=== PATIENT | female | born 1935 | race Caucasian/White ===

== ENCOUNTER 2017-02-06 03:54 | Inpatient (IN) ==
[2017-02-06 04:12] LABS: MANUAL DIFF NEEDED? NO
[2017-02-06 04:25] LABS: INR 1.09; PROTIME 11.5 Seconds (9.2-11.7); PTT 29.8 Seconds (22.0-36.0)
[2017-02-06 04:33] LABS: BASO% 0.5 % (0.0-0.8); EOS# 0.26 X1000 (0.0-0.7); EOS% 2.2 % (0.0-10.0); HEMATOCRIT 41.2 % (37.0-47.0); HEMOGLOBIN 12.6 g/dL (12.0-16.0); IMM GRAN# 0.03 X1000 (0.0-0.04); IMM GRAN% 0.3 % (0.0-0.5); LYMPH# 1.65 X1000 (1.2-3.4); LYMPH% 14.1 % (20.5-51.1); MCH 29.6 PG (27-31); MCHC 30.6 g/dL (33-37); MCV 96.9 FL (81-99); MONO# 1.11 X1000 (0.11-0.59); MONO% 9.5 % (1.7-9.3); MPV 10.9 FL (7.4-10.4); NEUT% 73.4 % (42.2-75.2); PLT 288 X1000 (130-400); RBC 4.25 XMIL (4.2-5.4)
[2017-02-06 04:38] LABS: ALBUMIN 3.9 g/dL (3.5-5.0); CALCIUM 9.5 mg/dL (8.8-10.2); MAGNESIUM 2.2 mg/dL (1.5-2.7); POTASSIUM 3.7 mmol/L (3.5-5.1); TOTAL BILIRUBIN 0.39 mg/dL (0.20-1.00); TOTAL PROTEIN 8.7 g/dL (6.3-8.3)
--- NOTE | 2017-02-06 06:15 | Diag Imaging Result Doc PS360 ---
EXAM: CHEST-PORTABLE HISTORY: SOB TECHNIQUE: Portable COMPARISON: 08/23/2015 FINDINGS: The lungs are well expanded. The heart is enlarged. There is vascular distention. No pleural effusions identified. No consolidation. IMPRESSION: Cardiomegaly with pulmonary edema. Follow-up PA and lateral recommended. Electronically signed by Hayder Jones 02/06/2017 6:12 AM
[2017-02-06 06:49] LABS: ALLEN TEST YES; BE 11.6 mmoll (-3.0-3.0); BLOOD TYPE ARTERIAL; DRAW SITE R RADIAL; METHB 0.9 % (0.0-1.5); O2(CT) 18.3 mL/dL (15.0-23.0); PO2(98.6) 281 mmHg (60-100); SAMPLE BLOOD; SAO2 99.7 % (95.0-100.0); THB 12.9 g/dL (11.5-17.4); pH(98.6) 7.35 (7.35-7.45)
[2017-02-06 06:51] LABS: MODALITY NRB; PCO2(98.6) 73 mmHg (35-45)
--- NOTE | 2017-02-06 06:52 | PROVIDER DOCUMENTATION ---
HPI-Chest Pain - General Chief Complaint: Chest Pain Stated Complaint: cp Time Seen by Provider: 02/06/17 04:20 Source: patient Allergies/Adverse Reactions: Patient Allergies Allergy/AdvReac Type Severity Reaction Status Date / Time cephalexin [From Keflex] Allergy Mild Unknown Verified 02/06/17 04:24 Home Medications: Home Medication List Medication Instructions Recorded Confirmed Last Taken Type Acetaminophen [Tylenol] 1 each PO TID PRN 02/06/17 02/06/17 Unknown History Alprazolam [Xanax] 0.25 mg PO TID 02/06/17 02/06/17 Unknown History Atorvastatin Calcium [Lipitor] 10 mg PO QHS 02/06/17 02/06/17 Unknown History Carvedilol [Coreg] 25 mg PO DAILY 02/06/17 02/06/17 Unknown History Cilostazol [Pletal] 50 mg PO BID 02/06/17 02/06/17 Unknown History Dapagliflozin Propanediol [Farxiga] 10 mg PO DAILY 02/06/17 02/06/17 Unknown History Desvenlafaxine Succinate [Pristiq 100 mg PO DAILY 02/06/17 02/06/17 Unknown History ER] Digoxin [Lanoxin] 1 each PO DAILY 02/06/17 02/06/17 Unknown History Diltiazem HCl [Diltiazem ER] 1 each PO DAILY 02/06/17 02/06/17 Unknown History Docusate Sodium [Colace] 200 mg PO QHS 02/06/17 02/06/17 Unknown History Furosemide [Lasix] 40 mg PO BID 02/06/17 02/06/17 Unknown History Gabapentin 300 mg PO TID 02/06/17 02/06/17 Unknown History Hydrocodone/APAP 5 mg/325 mg 1 each PO TID PRN 02/06/17 02/06/17 Unknown History [[place]anton-5] Insulin Glargine [Lantus] 60 units SUBQ BID 02/06/17 02/06/17 Unknown History Insulin Lispro [Humalog] 1 each PO DIRECTED 02/06/17 02/06/17 Unknown History Levothyroxine Sodium [Synthroid] 25 mcg PO QAM 02/06/17 02/06/17 Unknown History Losartan Potassium [Cozaar] 100 mg PO DAILY 02/06/17 02/06/17 Unknown History Melatonin 3 mg PO QHS 02/06/17 02/06/17 Unknown History Metformin HCl [Metformin HCl ER] 1 each PO QHS 02/06/17 02/06/17 Unknown History Olanzapine 10 mg PO QHS 02/06/17 02/06/17 Unknown History Polyethylene Glycol 3350 [Miralax] 1 each PO DAILY 02/06/17 02/06/17 Unknown History Potassium Chloride E.r. [Klor-Con] 20 meq PO DAILY 02/06/17 02/06/17 Unknown History Vit/Fe Fumarate/FA 1 each PO DAILY 02/06/17 02/06/17 Unknown History [ 1-1 Tablet] Rivaroxaban [Xarelto] 20 mg PO DAILY 02/06/17 02/06/17 Unknown History - History of Present Illness-CP Nature of Presenting Problem: senior living transferred pt to ER because of SOB and pale-colored. Pt uses home O2 for 3L NC. Pt is A&O X 3 and she pointed to her L chest and LUQ area when asked for the location of the pain. Pt and her family stating that she is DNR. 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 Location: reports: other (See above) Review of Systems - Adult - REVIEW OF SYSTEMS - ADULT Constitutional: reports: no symptoms reported Eyes: reports: no symptoms reported Ears, Nose, Mouth & Throat: reports: no symptoms reported Cardiovascular: reports: see HPI, chest pain. denies: heart murmur, irregular heart rate, palpitations Respiratory: reports: see HPI, cough, shortness of breath Gastrointestinal: reports: no symptoms reported, abdominal pain, other ( Diffused LUQ area tenderness, no guarding and no rebound.). denies: rectal bleeding, vomiting Genitourinary: reports: no symptoms reported Musculoskeletal: reports: no symptoms reported Integumentary: reports: no symptoms reported Neurological: reports: no symptoms reported Psychiatric: reports: no symptoms reported Endocrine: reports: no symptoms reported Hematologic/Lymphatic: reports: no symptoms reported Allergic/Immunologic: reports: no symptoms reported All Other Systems: Reviewed and Negative Past History - Adult - PAST MEDICAL HISTORY-ADULT Review of Records: reports: Old Records Reviewed, Nursing Assessment Review, Medications Reviewed, Social history reviewed & non-contributory. Major Childhood Illnesses: reports: denies history Cardiovascular: reports: A-Fib, CHF, HTN, hyperlipidemia Respiratory: reports: denies history Gastrointestinal: reports: denies history Obstetrical/Gynecological: reports: denies history Genitourinary: reports: denies history Musculoskeletal: reports: denies history Neurological: reports: dementia Psychiatric: reports: denies history Endocrine/Immune: reports: Diabetes Other Conditions: reports: blindness - PRIOR SURGERIES/PROCEDURES Surgical/Procedure History: reports: cholecystectomy, hysterectomy, joint replacement (right knee) - PRIOR HOSPITALIZATIONS Prior Hospitalizations: reports: for similar symptoms - IMMUNIZATION STATUS Childhood Immunizations: See Nurse Assessment Flu Vaccine: See Nurse Assessment - FAMILY HISTORY Family History: CAD over 55 yo Physical Exam-General - PHYSICAL EXAM-ADULT Initial Vital Signs Reviewed: Yes - CONSTITUTIONAL General Appearance: alert, no apparent distress (on non-rebreather) - HEAD, EARS, NOSE, MOUTH & THROAT HENMT: normocephalic/atraumatic, moist mucous membranes - NECK Neck: non-tender, full range of motion, supple - RESPIRATORY Respiratory: lungs clear, normal breath sounds, no pleuratic chest pain, no respiratory distress, no accessory muscle use, respiratory distress - CARDIOVASCULAR Cardiovascular: normal peripheral pulses, regular rate, rhythm, no edema, no gallop, no JVD, no murmur - GASTROINTESTINAL (ABDOMEN) Abdominal Exam: normal bowel sounds, non tender, soft, no organomegaly - MUSCULOSKELETAL Back Exam: normal inspection, no CVA tenderness, no vertebral tenderness - SKIN Integumentary: normal color, normal turgor, warm/dry - NEUROLOGIC Neurologic: no motor/sensory deficits - PSYCHIATRIC Psych/Mental Status: normal mood/affect, normal thought content, normal thought process, oriented x 3 Progress - PLAN OF CARE/RESULTS Progress/Plan/Lab Results: Vital Signs - 8 hr 02/06/17 03:43 02/06/17 06:02 02/06/17 06:17 Temperature 98.2 F Pulse Rate 98 H 84 81 Respiratory Rate 25 H 24 20 Blood Pressure 131/72 131/72 104/64 O2 Sat by Pulse Oximetry 98 100 100 Laboratory Results - last 24 hr 02/06/17 02/06/17 02/06/17 04:01 04:01 04:01 WBC 11.67 H RBC 4.25 Hgb 12.6 Hct 41.2 MCV 96.9 MCH 29.6 MCHC 30.6 L RDW Std Deviation 15.4 H Plt Count 288 MPV 10.9 H Immature Gran % (Auto) 0.3 Neut % (Auto) 73.4 Lymph % (Auto) 14.1 L [place] % (Auto) 9.5 H Eos % (Auto) 2.2 Baso % (Auto) 0.5 Immature Gran # (Auto) 0.03 Neut # (Auto) 8.56 H Lymph # (Auto) 1.65 [place] # (Auto) 1.11 H Eos # (Auto) 0.26 Baso # (Auto) 0.06 PT INR PTT (Actin FS) D-Dimer 0.45 Specimen Type Sample Site pH pCO2 pO2 HCO3 Base Excess Oxyhemoglobin ABG O2 Sat (Calculated) ABG O2 Saturation ABG Carboxyhemoglobin ABG Methemoglobin Babak Test A-a O2 Difference Total Hemoglobin Lactate Liter Flow Blood Gas Modality FiO2 % Sodium 146 H Potassium 3.7 Chloride 99 Carbon Dioxide 38 H Anion Gap 9 BUN 18 Creatinine 0.9 Estimated GFR/1.73 m2 60 BUN/Creatinine Ratio 20 Glucose 109 H Calculated Osmolality 293 Calcium 9.5 Magnesium 2.2 Total Bilirubin 0.39 AST 17 ALT 11 Alkaline Phosphatase 117 H Creatine Kinase 33 Troponin T [id number] Pept Total Protein 8.7 H Albumin 3.9 Globulin 4.8 Albumin/Globulin Ratio 0.8 02/06/17 02/06/17 02/06/17 04:01 04:01 04:01 WBC RBC Hgb Hct MCV MCH MCHC RDW Std Deviation Plt Count MPV Immature Gran % (Auto) Neut % (Auto) Lymph % (Auto) [place] % (Auto) Eos % (Auto) Baso % (Auto) Immature Gran # (Auto) Neut # (Auto) Lymph # (Auto) [place] # (Auto) Eos # (Auto) Baso # (Auto) PT 11.5 INR 1.09 PTT (Actin FS) 29.8 D-Dimer Specimen Type Sample Site pH pCO2 pO2 HCO3 Base Excess Oxyhemoglobin ABG O2 Sat (Calculated) ABG O2 Saturation ABG Carboxyhemoglobin ABG Methemoglobin Babak Test A-a O2 Difference Total Hemoglobin Lactate Liter Flow Blood Gas Modality FiO2 % Sodium Potassium Chloride Carbon Dioxide Anion Gap BUN Creatinine Estimated GFR/1.73 m2 BUN/Creatinine Ratio Glucose Calculated Osmolality Calcium Magnesium Total Bilirubin AST ALT Alkaline Phosphatase Creatine Kinase Troponin T < 0.010 [id number] Pept 596 H Total Protein Albumin Globulin Albumin/Globulin Ratio 02/06/17 02/06/17 02/06/17 06:07 06:07 06:40 WBC RBC Hgb Hct MCV MCH MCHC RDW Std Deviation Plt Count MPV Immature Gran % (Auto) Neut % (Auto) Lymph % (Auto) [place] % (Auto) Eos % (Auto) Baso % (Auto) Immature Gran # (Auto) Neut # (Auto) Lymph # (Auto) [place] # (Auto) Eos # (Auto) Baso # (Auto) PT INR PTT (Actin FS) D-Dimer Specimen Type ARTERIAL Sample Site R RADIAL pH 7.35 pCO2 73 H* pO2 281 H HCO3 34.0 H Base Excess 11.6 H Oxyhemoglobin 97.4 ABG O2 Sat (Calculated) 18.3 ABG O2 Saturation 99.7 ABG Carboxyhemoglobin 1.40 ABG Methemoglobin 0.9 Babak Test YES A-a O2 Difference 341.0 Total Hemoglobin 12.9 Lactate 1.40 Liter Flow 15.0 Blood Gas Modality NRB FiO2 % 100.0 Sodium Potassium Chloride Carbon Dioxide Anion Gap BUN Creatinine Estimated GFR/1.73 m2 BUN/Creatinine Ratio Glucose Calculated Osmolality Calcium Magnesium Total Bilirubin AST ALT Alkaline Phosphatase Creatine Kinase 25 Troponin T < 0.010 [id number]-[id number]-[id number] Pept Total Protein Albumin Globulin Albumin/Globulin Ratio Orders Category Date Time Status Cardiac Monitoring DIRECTED Care 02/06/17 04:05 Active Oxygen Therapy- ED Nursing DIRECTED Care 02/06/17 04:05 Active Saline Loc NOW Care 02/06/17 04:05 Completed ABD/PELVIS/PULM ARTERIES [CT] Stat Exams 02/06/17 06:51 Ordered cxr [CHEST-PORTABLE] [RAD] Stat Exams 02/06/17 04:07 Completed ABG [RESP] Routine Lab 02/06/17 06:35 Ordered ABG [RESP] Routine Lab 02/06/17 06:40 Completed AMYLASE [CHEM] Stat Lab 02/06/17 06:51 Uncollected CBC WITH ELECTRONIC DIFF [HEME] Stat Lab 02/06/17 04:01 Completed CK PROFILE [SP CHEM] Stat Lab 02/06/17 04:01 Completed CK PROFILE [SP CHEM] Stat Lab 02/06/17 06:07 Completed COMPREHENSIVE METABOLIC PANEL [CHEM] Stat Lab 02/06/17 04:01 Completed D-DIMER [CHEM] Stat Lab 02/06/17 04:01 Completed LIPASE [CHEM] Stat Lab 02/06/17 06:51 Uncollected MAGNESIUM [CHEM] Stat Lab 02/06/17 04:01 Completed PRO B-NATRIURETIC PEPTIDE Stat Lab 02/06/17 04:01 Completed PROTIME WITH INR [COAG] Stat Lab 02/06/17 04:01 Completed PTT [COAG] Stat Lab 02/06/17 04:01 Completed TROPONIN T Stat Lab 02/06/17 04:01 Completed TROPONIN T Stat Lab 02/06/17 06:07 Completed Furosemide [Lasix] Med 02/06/17 07:01 Once 40 mg IV NOW ONE Levaquin 750 mg/D5w IV Now Med 02/06/17 07:02 Ordered Levofloxacin 750 mg/D5w [Levaquin 750 mg/D5w] 750 mg in 150 ml IV NOW BIPAP Stat Oth 02/06/17 06:51 Active EKG [EKG] Stat Ther 02/06/17 03:54 Ordered Result Diagrams: 02/06/17 04:01 02/06/17 04:01 - EKG 1 EKG Interpretation (*Must complete 3 of following elements*): Abnormal Rate: 85 Rhythm: A-fib [place]: normal QRS: normal MT Interval: normal ST Wave: non-specific ST changes - XRAY 1 XRAY Study: Chest Impression: Abnormal XRAY Interpretation: Cardiomegaly, pulmonary edema - CONSULTS/PCP/HOSPITALIST Notification #1 *Consult/PCP/Hospitalist*: Ashkan/Dr. Martins Time Discussed: 07:05 Consult Disposition: Will see in ED, Admit Departure - Departure Date of Disposition Decision: 02/06/17 Time of Disposition Decision: 07:05 DIAGNOSIS: Chest pain, Abdominal pain, Respiratory failure Disposition: ADMITTED INPATIENT 09 Certified Medical Emergency: Emergent Condition: Stable Referrals and Follow-Ups: None,PCP [Primary Care Provider] - - Critical Care Note This patient required my direct & personal management of CC.: No
[2017-02-06] MEDS ORDERED: LASIX IV ONE (07:01)
[2017-02-06] MEDS ORDERED: LEVAQUIN 750 MG/D5W 750 MG/150 ML IVPB IV ONE (07:02)
[2017-02-06 07:20] LABS: AMYLASE 51 U/L (20-200); LIPASE 27 U/L (13-60)
--- NOTE | 2017-02-06 07:55 | Diag Imaging Result Doc PS360 ---
EXAM: ABD/PELVIS/PULM ARTERIES HISTORY: CP and abd pain TECHNIQUE: CT chest with contrast. Coronal MIP images obtained. CT abdomen and pelvis with contrast. COMPARISON: Abdomen and pelvis is compared to 04/11/2013 FINDINGS: Chest: Normal opacification of the pulmonary arteries and their major branches. There is vascular distention. The heart is enlarged. There are small bilateral pleural effusions. The one on the right is larger than one left and one on the right measures 2.1 cm posteriorly and inferiorly in the midline. There is atelectasis in the lower lungs. There is an 8 mm nodular density posteriorly along the pleural surface on the left image 32. Mildly enlarged mediastinal lymph nodes. Abdomen and pelvis: There is mild fatty infiltration of the liver. The spleen is not enlarged. The gallbladder has been removed. Normal pancreas and adrenal glands. Nonspecific 13 mm nodule laterally in the mid left kidney. There are several tiny renal cysts bilaterally. Prominent atherosclerosis. No aneurysmal dilatation to the aorta. The left renal vein goes behind the aorta. This is a normal variant. 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 There is prominent stool throughout the colon. There are multiple scattered diverticula primarily in the descending and sigmoid colon. The urinary bladder is moderately distended. The uterus has been removed. No pelvic mass. There is scoliosis with degenerative spine changes and multilevel spinal stenosis. Small soft tissue or cystic area along the anterior coccyx is unchanged. Long-standing arthritic changes to each hip. IMPRESSION: Chest: 1. No pulmonary emboli 2. Cardiomegaly with pulmonary edema and small pleural effusions 3. Mildly enlarged mediastinal lymph nodes 4. Nodule in the posterior pleural surface on the left. Abdomen and pelvis: 1. Fatty infiltration of the liver 2. Cholecystectomy 3. Nonspecific nodule in the left kidney in addition to several tiny cysts 4. Prominent constipation 5. Diverticulosis 6. Prominent atherosclerosis 7. Hysterectomy 8. Scoliosis with degenerative spine changes and arthritis to the hips Electronically signed by Hayder Jones 02/06/2017 7:53 AM
[2017-02-06 10:32] LABS: URINE SOURCE CATH
[2017-02-06 10:41] LABS: BILIRUBIN URINE NEGATIVE (NEGATIVE); BLOOD URINE NEGATIVE (NEGATIVE); COLOR YELLOW; GLUCOSE URINE >1000 mg/dL (NEGATIVE); LEUKOCYTES URINE LARGE (NEGATIVE); NITRITE URINE NEGATIVE (NEGATIVE); PH URINE 6.5; PROTEIN URINE 30 mg/dL (NEGATIVE); SP GRAVITY URINE 1.035; TURBIDITY URINE HAZY (CLEAR); URINE MICRO REVIEW NEEDED? YES; UROBILINOGEN URINE NORMAL (NORMAL)
[2017-02-06 10:51] LABS: UR EPITHELIAL CELLS <10 /HPF (<10); URINE BACTERIA 4+ /HPF; URINE CULTURE NEEDED? YES; URINE RBC <10 /HPF (<10); URINE WBC TNTC /HPF (<10)
[2017-02-06] MEDS ORDERED: TYLENOL PO PRN (10:57)
[2017-02-06] MEDS ORDERED: INSULIN LISPRO PO SCH (10:57)
[2017-02-06] MEDS ORDERED: NORCO-5 PO PRN (10:57)
[2017-02-06 12:34] LABS: ALLEN TEST YES; BE 13.5 mmoll (-3.0-3.0); BLOOD TYPE ARTERIAL; DRAW SITE L RADIAL; METHB 0.9 % (0.0-1.5); O2(CT) 16.5 mL/dL (15.0-23.0); PO2(98.6) 62 mmHg (60-100); SAMPLE BLOOD; SAO2 94.3 % (95.0-100.0); THB 12.8 g/dL (11.5-17.4); pH(98.6) 7.43 (7.35-7.45)
[2017-02-06 12:35] LABS: MODALITY CANNULA
[2017-02-06] MEDS: NEURONTIN PO SCH ×2 (13:01→16:58)
[2017-02-06] MEDS: XANAX PO SCH ×2 (13:01→16:58)
--- NOTE | 2017-02-06 15:07 | HISTORY AND PHYSICAL ---
CHIEF COMPLAINT: Shortness of breath. HISTORY OF PRESENT ILLNESS: Ms. Pappas is an 82-year-old female with a history of chronic atrial fibrillation, type 2 diabetes, macular degeneration, and dementia as well as a diastolic heart failure who presents to the ER from [facility] with complaint of chest pain and shortness of breath. Patient is unable to give any type of history secondary to her cognitive status and the fact that she is on BiPAP. The daughter at the bedside reports that around 3 o'clock this morning the patient was complaining of chest pain and shortness of breath. The staff at [facility] noted that she was some ashen in color and in respiratory distress , so they sent her to the ER. In the ER, laboratory and diagnostics were done and chest x-ray showed pulmonary edema and her ABG showed respiratory acidosis. She was promptly placed on BiPAP and given diuresis. A CT of the abdomen and pelvis was also done with a pulmonary arteriogram. This did not show any PE. There was cardiomegaly with pulmonary edema and small pleural effusions. Abdomen did not show anything acute. There were multiple chronic changes noted, however. Currently, the patient is resting in bed comfortably without distress noted. She is on BiPAP. She is going to go to the [facility] for further treatment and evaluation. PAST MEDICAL HISTORY: 1. Congestive heart failure, diastolic dysfunction. Last echocardiogram done in 2013 shows EF of 45%. However, it was a poor study secondary to poor windows. There was some mild to moderate tricuspid regurgitation and mild aortic regurgitation. 2. Type 2 diabetes. 3. Chronic atrial fibrillation on rate control and anticoagulation. 4. 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 5. Arthritis. 6. Hyperlipidemia. 7. Hypertension. 8. Anxiety and depression. SURGICAL HISTORY: She has had a hysterectomy, right knee surgery, cholecystectomy, cataract surgery. SOCIAL HISTORY: Patient is . She lives at [facility]. 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 She has a history of nicotine dependence, but does not currently drink, smoke or use illicit substances. REVIEW OF SYSTEMS: Unable to obtain. FAMILY HISTORY: Noncontributory. ALLERGIES: Keflex. HOME MEDICATIONS: Tylenol as needed. Xanax 0.25 mg p.o. t.i.d. Lipitor 10 mg at bedtime. Coreg 25 mg daily. Pletal 50 mg b.i.d. Dapagliflozin 10 mg p.o. daily. Pristiq 100 mg daily. Lanoxin 125 mcg daily. Cardizem ER 180 mg daily. Colace 200 mg p.o. at bedtime. Lasix 40 mg b.i.d. Gabapentin 300 mg p.o. t.i.d. [place] 5 as needed t.i.d. Lantus 60 units subcutaneous daily and Humalog sliding scale. Synthroid 25 mcg a.m. Cozaar 100 mg daily. Melatonin 3 mg p.o. at bedtime. Metformin 1000 mg at bedtime. Olanzapine 10 mg at bedtime. MiraLAX 17 g daily. Klor- Con 20 mEq p.o. daily. Multivitamin daily. Xarelto 20 mg p.o. daily. PHYSICAL EXAMINATION: VITAL SIGNS: Blood pressure is 104/64, heart rate is 81, respiratory rate is 20 , O2 saturation 100% on BiPAP. Temperature is 98.2 degrees. GENERAL: This is an elderly female, lying in a hospital bed on BiPAP. NEUROLOGIC: The patient follows commands with globalized weakness, but no focal deficits. HEENT: Head atraumatic and normocephalic. Her sclerae are anicteric. The pupils are a bit unequal and irregular consistent with macular degeneration. NECK: Supple. Trachea is midline. CHEST: Bibasilar crackles with diminished entry throughout. CARDIOVASCULAR: Irregular rate and rhythm. S1, S2. GI: Soft, nondistended, nontender. Bowel sounds are hypoactive. EXTREMITIES: No edema, clubbing or cyanosis. Pulses 1+ bilaterally. DIAGNOSTIC DATA: Chest x-ray shows pulmonary edema and cardiomegaly. The pulmonary arteriogram, abdomen and pelvis CT showed no pulmonary emboli, cardiomegaly with pulmonary edema and small pleural effusions. Mildly enlarged mediastinal lymph node, nodule in the posterior pleural surface on the left. Fatty infiltration of the liver, cholecystectomy, diverticulosis, prominent atherosclerosis and scoliosis. EKG: Atrial fibrillation, rate controlled with nonspecific ST and T changes. WBC: 11.67, hemoglobin 12.6, hematocrit 41.6, platelet count 288, 000. INR 1. D- dimer 0.45. ABG on 100% non-rebreather. PH 7.35, CO2 73, O2 281, bicarb 34, sodium 146, potassium 3.7, chloride 99, CO2 38. Anion gap 9, BUN 18, creatinine 0.9, glucose 109, T bilirubin 0.39, AST 17, ALT 11. Alkaline phosphatase 117. Troponin negative x2 sets. ProBNP 596. Total protein 8.7. Lipase 27. ASSESSMENT/PLAN: 1. Chest pain: Unable to you get any kind of history from the patient, chest pain as per record review. We will trend enzymes and check an echo. Continue all of her home medicines. CTA does not show any pulmonary embolus. She does have congestive heart failure , which we will treat her for. 2. Acute on chronic hypercapnic respiratory failure: The patient has a CO2 of 73, but her pH is compensated with elevated bicarb, which is likely secondary to chronic respiratory acidosis. She has been placed on BiPAP and we will check another ABG in the near future. We will also treat her for her underlying congestive heart failure. 3. Acute on chronic heart failure. It would appear that she has diastolic heart failure. She does have some pulmonary edema and crackles on physical exam, so we will give her some diuresis intravenously, follow strict input and output and daily weights. We will trend her enzymes and check thyroid function and echocardiogram. 4. Diabetes mellitus: We will check a hemoglobin A1c and pattern sugars. Continue her home medications except for metformin and add sliding scale insulin. 5. Atrial fibrillation: Chronic and stable, continue home medications, including Zaroxolyn. 6. Macular degeneration, blindness: Aware. 7. Hyperlipidemia. We will continue her statin and check a lipid panel in the morning. 8. DVT prophylaxis will be provided with patient's home Xarelto. Further recommendations to follow. Dictated by MICHAEL Khan for Donald Agee MD cc: MICHAEL Khan MD I have seen and examined the patient and I agree with the above evaluation and plan. tyrese SZYMANSKI
[2017-02-06] MEDS: HUMALOG SUBQ SCH ×2 (16:34→20:46)
--- NOTE | 2017-02-06 18:58 | PROGRESS NOTE ---
DATE: 02/06/2017 SUBJECTIVE: Ms. Pappas got admitted this morning. She came from [facility] and she got admitted because of chest and abdominal discomfort and some shortness of breath. Her HPI has already been done. OBJECTIVE: Current vital signs: Blood pressure is 119/56, pulse is 77, respirations 20, temperature 97.2 degrees. General: Ms. Pappas is an 82-year-old female. She was in bed, in mild respiratory distress. HEENT: Mucosa is pink and moist. Anicteric. Acyanotic. She is blind in the right eye. Minimal vision in the left eye. Neck: Supple. Chest: Air entry is bilaterally reduced. There is diffuse bilateral crepitations in the posterior lung field. Cardiovascular: Irregularly irregular. No murmurs. Abdomen: Soft. Extremities: No pedal edema. Distal pulses are remarkably low. DIAGNOSTIC STUDIES: I took a look at a CT scan of the abdomen and pelvis and the chest. It shows no pulmonary emboli. There is cardiomegaly with pulmonary edema and small pleural effusions. Mildly enlarged mediastinal lymph nodes. Abdomen shows prominent atherosclerosis and prominent constipation. LABORATORY DATA: Has been reviewed. ASSESSMENT AND PLAN: 1. Hypoxemic respiratory failure on presentation. Likely due to underlying pulmonary edema with pleural effusions. 2. Chest and abdominal pain. I think this is multifactorial. The patient's EKG and troponins have all been negative which has rule out acute MD. I think abdominal pain is mainly related to the severe constipation that she has on the CT scan. We are going to treat this more symptomatically. 3. Atrial fibrillation, currently rate controlled. We will continue with her home medications. We will put her on Lasix to help with some of the fluid from the lungs. 4. Congestive heart failure. The patient does have a remote echo in 2013 which did show an ejection fraction of 45%. We will have to repeat this. 5. Probable chronic hypercarbic respiratory failure. cc: Donald Agee MD
[2017-02-06 20:42] LABS: PCO2(98.6) 61 mmHg (35-45)
[2017-02-06] MEDS: LIPITOR PO SCH (20:45)
[2017-02-06] MEDS: PLETAL PO SCH (20:45)
[2017-02-06] MEDS: COLACE PO SCH (20:45)
[2017-02-06] MEDS: MELATONIN PO SCH (20:46)
[2017-02-06] MEDS: ZYPREXA PO SCH (20:46)
[2017-02-06] MEDS: LANTUS SUBQ SCH (20:46)
[2017-02-06] MEDS ORDERED: LOPRESSOR IV PRN (23:50)
[2017-02-07] MEDS: XANAX PO PRN ×2 (02:29→20:12)
[2017-02-07] MEDS ORDERED: LOPRESSOR IV ONE (03:39)
[2017-02-07 05:01] LABS: HEMATOCRIT 41.6 % (37.0-47.0); HEMOGLOBIN 12.9 g/dL (12.0-16.0); MCH 29.9 PG (27-31); MCV 96.3 FL (81-99); MPV 10.3 FL (7.4-10.4); RBC 4.32 XMIL (4.2-5.4)
[2017-02-07 05:09] LABS: HEMOGLOBIN A1C 7.6 % (4.8-6.0)
[2017-02-07 05:22] LABS: AGAP 15; BUN 19 mg/dL (8-22); CALCIUM 9.3 mg/dL (8.8-10.2); CHLORIDE 96 mmol/L (98-107); COSMO 291; HDL 34 mg/dL (45-65); LDL 97 mg/dL; POTASSIUM 4.2 mmol/L (3.5-5.1); SODIUM 142 mmol/L (136-145); TCO2 31 mmol/L (25-35); TRIGLYCERIDES 77 mg/dL (35-135); VLDL 15 mg/dL
[2017-02-07] MEDS ORDERED: LANOXIN PO ONE (06:25)
[2017-02-07] MEDS ORDERED: COREG PO ONE (06:25)
[2017-02-07] MEDS ORDERED: CARDIZEM LA PO ONE (06:26)
[2017-02-07] MEDS: SYNTHROID PO SCH (06:54)
[2017-02-07] MEDS: HUMALOG SUBQ SCH ×4 (06:54→23:30)
--- NOTE | 2017-02-07 06:54 | EKG Report ---
Test Performed on : 02/06/2017 10:35:50 PM Test Reason : Increased Heart Rate Blood Pressure : / mmHG Vent. Rate : 124 BPM Atrial Rate : 124 BPM P-R Int : 120 ms QRS Dur : 086 ms QT Int : 314 ms P-R-T Axes : 000 068 233 degrees QTc Int : 451 ms Sinus tachycardia. with premature supraventricular complexes. Septal infarct (cited on or before 27-AUG-2015) Marked ST abnormality, possible inferolateral subendocardial injury Abnormal ECG When compared with ECG of 06-FEB-2017 06:13, (Unconfirmed) Sinus rhythm. has replaced Atrial fibrillation. ST now depressed in Anterolateral leads Inverted T waves have replaced nonspecific T wave abnormality in Inferior leads T wave inversion more evident in Lateral leads Confirmed by Griselda Mccormick MD ([id number]) on 02/08/2017 12:26:22 PM
--- NOTE | 2017-02-07 07:08 | EKG Report ---
Test Performed on : 02/06/2017 03:51:38 AM Test Reason : cp Blood Pressure : / mmHG Vent. Rate : 092 BPM Atrial Rate : 087 BPM P-R Int : 000 ms QRS Dur : 090 ms QT Int : 360 ms P-R-T Axes : 000 051 234 degrees QTc Int : 445 ms Atrial fibrillation. Septal infarct (cited on or before 27-AUG-2015) Marked ST abnormality, possible inferior subendocardial injury Abnormal ECG When compared with ECG of 27-AUG-2015 04:07, Vent. rate has decreased BY [address] less depressed in Lateral leads T wave inversion more evident in Lateral leads Unconfirmed Result
[2017-02-07] MEDS: MIRALAX PO SCH (08:42)
[2017-02-07] MEDS: NEURONTIN PO SCH ×3 (08:43→18:00)
[2017-02-07] MEDS: PRISTIQ ER PO SCH (08:43)
[2017-02-07] MEDS: PRECARE PO SCH (08:43)
[2017-02-07] MEDS: LANTUS SUBQ SCH ×2 (08:43→23:00)
[2017-02-07] MEDS: XARELTO PO SCH (08:43)
[2017-02-07] MEDS: PLETAL PO SCH ×2 (08:43→20:11)
[2017-02-07] MEDS: COZAAR PO SCH (08:43)
[2017-02-07] MEDS: LASIX IV SCH (08:44)
[2017-02-07] MEDS ORDERED: COREG PO SCH ×2 (09:00)
[2017-02-07] MEDS ORDERED: LANOXIN PO SCH ×2 (09:00)
[2017-02-07] MEDS ORDERED: CARDIZEM LA PO SCH (09:00)
--- NOTE | 2017-02-07 09:27 | EKG Report ---
Test Performed on : 02/06/2017 06:13:57 AM Test Reason : CP Blood Pressure : / mmHG Vent. Rate : 085 BPM Atrial Rate : 357 BPM P-R Int : 000 ms QRS Dur : 090 ms QT Int : 404 ms P-R-T Axes : 000 046 221 degrees QTc Int : 480 ms Atrial fibrillation. Septal infarct (cited on or before 27-AUG-2015) ST \T\ T wave abnormality, consider lateral ischemia Abnormal ECG When compared with ECG of 06-FEB-2017 03:51, (Unconfirmed) Nonspecific T wave abnormality has replaced inverted T waves in Inferior leads Unconfirmed Result
[2017-02-07] MEDS ORDERED: MILK OF MAGNESIA PO ONE (11:06)
--- NOTE | 2017-02-07 13:52 | ECHO REPORT ---
ORDER DATE: 02/07/2017 ECHOCARDIOGRAPHIC MEASUREMENTS: 1. Interventricular septum 1.0. Left ventricular posterior wall 1.0. Diastolic diameter 5.0. Left atrium 4.9. Aorta 3.2. 2. Normal left ventricular cavity size. Estimated ejection fraction of 60%. 3. There is moderate mitral annular calcification. Mitral valve anterior leaflet is calcified. Posterior mitral leaflet has restricted movement tricuspid. Valve was normal. Aortic valve leaflets are sclerosed, trileaflet. 4. Peak velocity across the aortic valve was 3.8 m/sec with a mean gradient of 31 mmHg. Aortic valve area by VTI suggestive of moderate aortic stenosis associated with mild aortic regurgitation. 5. Aortic valve area 0.9 square cm. 6. Inflow velocity across the mitral valve was 1.98 m/sec an with a mean gradient of 7 mmHg by pressure half time valve area suggestive of mild mitral stenosis with a pressure half-time of 77 ms. There is mild mitral regurgitation. 7. There is mild to moderate tricuspid regurgitation. Peak velocity across the tricuspid valve was 4 m/sec. Pulmonary systolic pressure of 73 mmHg. There is severe pulmonary arterial hypertension. 8. Mild pulmonary regurgitation. 9. There is no pericardial effusion or obvious intracardiac mass or thrombus. cc: MD Michael Condon CRNP
--- NOTE | 2017-02-07 15:17 | PROGRESS NOTE ---
DATE: 02/07/2017 SUBJECTIVE: Today Ms. Pappas refers to be doing fine. According to the nurses she has been hallucinating every now and then. Thinks that there is some people in the room. When I went to examine her she was shouting and saying that the staff is rounding up elderly people and kids here. OBJECTIVE: Vital signs: Blood pressure is 123/38, pulse of 97, respirations 28, temperature 98.7 degrees. General: Ms. Pappas 82-year-old female. She is in bed, does not seem to be in any distress. HEENT: Mucosa is pink and moist. Anicteric. Acyanotic. Neck: Supple. Chest: Air entry is bilaterally reduced. There are some crepitations to the posterior lung villanueva. Cardiovascular: Irregularly irregular. No murmurs. Abdomen: Soft. There is an old right upper quadrant surgical scar. No hepatosplenomegaly. Extremities: No pedal edema. Distal pulses are remarkably low. [employer]: Patient is awake, alert. 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 LABORATORY DATA: WBC is 16.76, hemoglobin is 12.9, platelet count of 281,000. Chemistry is reviewed. Sodium is 142, potassium is 4.2, chloride 96, bicarb is 31. A1c 7.6. So far urine culture is negative. CURRENT MEDICATIONS: Include. 1. Alprazolam p.r.n. 2. Atorvastatin. 3. Carvedilol 12.5 daily. 4. Cilostazol 50 mg b.i.d. 5. Pristiq 100 mg daily. 6. Digoxin 125 mcg daily. 7. Diltiazem 180 p.o. daily. 8. Furosemide 40 IV daily. 9. Losartan 100 mg daily. 10. Melatonin. 11. Rivaroxaban 20 mg daily. DATA: A chest x-ray which was done on admission shows cardiomegaly with pulmonary edema. A CT scan of the abdomen and pelvis which was done shows no pulmonary emboli. Cardiomegaly with pulmonary edema and small pleural effusions. Mild enlarged mediastinal lymph nodes, nodule in the posterior pleural space. Abdomen shows prominent constipation. ASSESSMENT: 1. Hypoxemic respiratory failure on presentation secondary to pulmonary edema and pleural effusion. 2. Acute on chronic congestive heart failure. 3. Abdominal pain secondary to constipation. 4. Hallucination, slight delirium on baseline dementia. 5. Resident of [facility]. 6. Diabetes mellitus with A1c 7.6. In general I think Ms. Pappas is doing relatively stable. Ms. Pappas was admitted yesterday because of shortness of breath, chest discomfort and abdominal discomfort. Was found to be in congestive heart failure. So far breathing is improved, oxygenation is also improved so far saturating 96% actually on nasal cannula. We are going to transfer the patient from the [facility] to regular floor. Would consult PT to work with the patient. We are pending the echocardiogram report and hopefully if her breathing significantly improve over the next 24 hours we might be able to discharge her. We also treating very actively the constipation which I think was 1 of her main reasons of coming to the hospital. If patient makes adequate bowel movement in the ensuing 24 hours will be able to discharge her. The patient is a resident of [facility] long-term. cc: Donald Agee MD
[2017-02-07] MEDS: COLACE PO SCH (20:11)
[2017-02-07] MEDS: MELATONIN PO SCH (20:11)
[2017-02-07] MEDS: ZYPREXA PO SCH (20:12)
[2017-02-07] MEDS: LIPITOR PO SCH (20:12)
[2017-02-07] MEDS ORDERED: INSULIN PEN NEEDLES ONE (23:08)
[2017-02-07 23:36] LABS: URINE MICRO REVIEW NEEDED? NO; URINE SOURCE CATH
[2017-02-08 00:04] LABS: BILIRUBIN URINE NEGATIVE (NEGATIVE); BLOOD URINE NEGATIVE (NEGATIVE); COLOR YELLOW; GLUCOSE URINE >1000 mg/dL (NEGATIVE); LEUKOCYTES URINE SMALL (NEGATIVE); NITRITE URINE NEGATIVE (NEGATIVE); PH URINE 5.5; PROTEIN URINE TRACE mg/dL (NEGATIVE); SP GRAVITY URINE 1.025; TURBIDITY URINE CLEAR (CLEAR); UR EPITHELIAL CELLS <10 /HPF (<10); URINE BACTERIA NEGATIVE /HPF; URINE RBC <10 /HPF (<10); URINE WBC <10 /HPF (<10); UROBILINOGEN URINE NORMAL (NORMAL)
[2017-02-08] MEDS: SYNTHROID PO SCH (06:22)
[2017-02-08] MEDS: HUMALOG SUBQ SCH ×4 (06:24→22:44)
[2017-02-08 06:55] LABS: HEMATOCRIT 39.6 % (37.0-47.0); HEMOGLOBIN 12.2 g/dL (12.0-16.0); MCHC 30.8 g/dL (33-37); MCV 97.3 FL (81-99); MPV 10.3 FL (7.4-10.4); RBC 4.07 XMIL (4.2-5.4)
[2017-02-08 07:28] LABS: AGAP 9; BUN 25 mg/dL (8-22); CHLORIDE 98 mmol/L (98-107); COSMO 294; POTASSIUM 3.7 mmol/L (3.5-5.1); SODIUM 143 mmol/L (136-145); TCO2 36 mmol/L (25-35)
[2017-02-08] MEDS: XARELTO PO SCH (10:22)
[2017-02-08] MEDS: NEURONTIN PO SCH ×3 (10:22→22:36)
[2017-02-08] MEDS: COZAAR PO SCH (10:22)
[2017-02-08] MEDS: CARDIZEM LA PO SCH (10:22)
[2017-02-08] MEDS: PRISTIQ ER PO SCH (10:22)
[2017-02-08] MEDS: LANOXIN PO SCH (10:23)
[2017-02-08] MEDS: LANTUS SUBQ SCH ×2 (10:23→22:38)
[2017-02-08] MEDS: PLETAL PO SCH ×2 (10:23→22:36)
[2017-02-08] MEDS: COREG PO SCH (10:23)
[2017-02-08] MEDS: LASIX IV SCH (10:23)
[2017-02-08] MEDS: PRECARE PO SCH (10:23)
[2017-02-08] MEDS: MIRALAX PO SCH (10:24)
[2017-02-08] MEDS ORDERED: DULCOLAX PR ONE (11:31)
[2017-02-08] MEDS ORDERED: GOLYTELY PO ONE (11:45)
[2017-02-08] MEDS ORDERED: LEVAQUIN 750 MG/D5W 750 MG/150 ML IVPB IV SCH (11:45)
--- NOTE | 2017-02-08 18:13 | PROGRESS NOTE ---
DATE: 02/08/2017 SUBJECTIVE: Patient reports feeling fine but reports not able to move her bowels for many days. OBJECTIVE: Vital Signs: Temperature 98.2 degrees, heart rate 106, respiratory rate 20, blood pressure 100/69, O2 saturation 93% on 4 L nasal cannula. General Examination: This is an 82-year- old, female lying in bed, in no acute distress. HEENT: Head is normocephalic, atraumatic. Anicteric sclerae and pale conjunctivae. Mucous membranes moist. Neck: Supple. No JVD noted. No carotid bruits. No lymphadenopathy. No thyromegaly. Cardiovascular: S1, S2 heard. No murmurs, gallops, or rubs. Regular rate and rhythm. Respiratory: Clear bilaterally to auscultation. No work of breathing or using accessory muscles. Abdomen: Soft, nontender to palpation. Bowel sounds present. No organomegaly. Extremities: No clubbing , cyanosis, or edema. Peripheral pulses present in both legs. Neurological: Patient is alert and oriented x3. Moves 4 extremities. Cranial nerves 2-12 grossly normal. The patient is awake and alert. 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 Moves 4 extremities. LABORATORY DATA: White cell count of 17.14, hemoglobin 12.2, hematocrit 39.6, platelets 260,000. BMP is unremarkable. ASSESSMENT AND PLAN: 1. Hypoxemic respiratory failure on presentation secondary to pulmonary edema. Regarding oxygen supplementation, patient is requiring the same amount of oxygen. The patient reports feeling better. Some crackles still present in both pulmonary villanueva. We will continue with the same management. 2. Abdominal pain secondary to constipation. Patient has been given MiraLAX but it did not work. So at this time, we are going to give GoLYTELY. 3. Hallucinations. Apparently that could be related most likely to baseline dementia. As per nursing staff she was not having any more episodes of hallucinations. 4. Diabetes mellitus type 2. Hemoglobin A1c 7.6, which means a good diabetic control. We will continue with the same insulin sliding scale. 5. This patient is doing well. Patient able to have bowel movements and the oxygen needs are getting better. I think this patient can be discharged back to his [facility] emt intermediate. cc: MD NESSA Nolan
[2017-02-08] MEDS: ZYPREXA PO SCH (22:36)
[2017-02-08] MEDS: COLACE PO SCH (22:37)
[2017-02-08] MEDS: LIPITOR PO SCH (22:37)
[2017-02-08] MEDS: MELATONIN PO SCH (22:38)
[2017-02-09] MEDS: HUMALOG SUBQ SCH ×2 (06:11→11:43)
[2017-02-09] MEDS: SYNTHROID PO SCH (06:13)
[2017-02-09] MEDS ORDERED: D50W SYRINGE IV ONE (06:39)
[2017-02-09 07:02] LABS: HEMATOCRIT 37.8 % (37.0-47.0); HEMOGLOBIN 11.6 g/dL (12.0-16.0); MCHC 30.7 g/dL (33-37); MCV 97.7 FL (81-99); MPV 10.1 FL (7.4-10.4); RBC 3.87 XMIL (4.2-5.4)
[2017-02-09 07:31] LABS: AGAP 12; BUN 26 mg/dL (8-22); CALCIUM 8.6 mg/dL (8.8-10.2); CHLORIDE 94 mmol/L (98-107); COSMO 287; POTASSIUM 3.1 mmol/L (3.5-5.1); SODIUM 143 mmol/L (136-145); TCO2 37 mmol/L (25-35)
[2017-02-09 08:54] VITALS: BP 129/56
[2017-02-09] MEDS: MIRALAX PO SCH (10:25)
[2017-02-09] MEDS: PRECARE PO SCH (10:26)
[2017-02-09] MEDS: COREG PO SCH (10:26)
[2017-02-09] MEDS: LASIX IV SCH (10:26)
[2017-02-09] MEDS: PLETAL PO SCH (10:27)
[2017-02-09] MEDS: XARELTO PO SCH (10:27)
[2017-02-09] MEDS: PRISTIQ ER PO SCH (10:27)
[2017-02-09] MEDS: LANOXIN PO SCH (10:27)
[2017-02-09] MEDS: NEURONTIN PO SCH (10:27)
[2017-02-09] MEDS: CARDIZEM LA PO SCH (10:28)
[2017-02-09] MEDS: COZAAR PO SCH (10:28)
[2017-02-09] MEDS: LANTUS SUBQ SCH (10:29)
[2017-02-09] MEDS ORDERED: KLOR-CON PO ONE (10:56)
--- NOTE | 2017-02-09 11:18 | DISCHARGE SUMMARY ---
ADMISSION DATE: 02/06/2017 DISCHARGE DATE: 02/09/2017 CONSULTATIONS: None. PERTINENT PROCEDURES: 1. Abdomen and pelvis CT showed no pulmonary emboli, cardiomegaly with pulmonary edema and small pleural effusions. Mildly enlarged mediastinal lymph nodes. Nodule in the posterior pleural surface on the left, fatty infiltration of the liver. Cholecystectomy, nonspecific nodule in the left kidney in addition to several tiny cysts. Prominent constipation. Diverticulosis. Prominent atherosclerosis. Hysterectomy. 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 2. Echocardiogram showed an EF of 60%. DISCHARGE DIAGNOSES: 1. Acute hypoxemic respiratory failure on presentation secondary to pulmonary edema and pleural effusions. Stable. 2. Acute on chronic congestive heart failure. Stable. 3. Abdominal pain secondary to constipation. Improved. 4. Hallucinations, slight delirium, at baseline dementia. 5. Resident. 6. Uncontrolled diabetes with A1c at 7.6. 7. Atrial fibrillation chronic and stable. 8. Macular degeneration with blindness. Aware. 9. Hyperlipidemia. Continue statin. 10. Chest pain ruled out with EKG and troponins. HOSPITAL COURSE: Briefly, Ms. Pappas is an 82-year-old, female, who carries a past medical history of chronic atrial fibrillation, type 2 diabetes, macular degeneration, dementia as well as diastolic heart failure. Presented to the ED from [facility] with complaint of chest pain and shortness of breath. At the time of her admission she was unable to give any type of history secondary to her cognitive status and the fact that she was on BiPAP. She did have a daughter at the bedside who reported around 3 o'clock in the morning the patient was complaining of chest pain and shortness of breath. The staff at [facility] noted she was ashen in color and respiratory distress so they sent her to the ED. Laboratory data and diagnostics were performed. Her chest x-ray showed pulmonary edema. Her ABG showed respiratory acidosis. She was promptly placed on BiPAP and given diuresis. CT of the abdomen and pelvis was done with pulmonary arteriogram. Did not show a PE but did show cardiomegaly with pulmonary edema and small pleural effusions. Abdomen did not show anything acute. There were multiple chronic changes noted. The patient was admitted to PSYCHIATRIC. Her cardiac enzymes were trended. They rechecked an echocardiogram. She was continued on her home medications. She was treated for her congestive heart failure. She was continued on BiPAP. She was placed on daily weights with strict I and Os. Her EKGs and troponins were negative which ruled out an acute NV. Her abdominal pain was secondary to her severe constipation. She was treated symptomatically. Her atrial fibrillation rate was controlled. She was diuresed appropriately. Her breathing has improved. She was weaned down to nasal cannula. She was transferred from the PSYCHIATRIC to the regular floor. Physical therapy was consulted to work with the patient. The patient is back to her baseline dementia and she will be discharged back to [facility] today. VITAL SIGNS: Temperature is 98.6 degrees, heart rate 99, respirations 24, blood pressure 129/56, O2 is 98%. DISCHARGE DIET: Diabetic. DISCHARGE MEDICATIONS: 1. As per Dr. Johnson Tylenol 500 mg p.o. t.i.d. p.r.n. 2. Xanax 0.25 mg p.o. t.i.d. 3. Lipitor 10 mg p.o. at bedtime. 4. Coreg 25 mg p.o. b.i.d. 5. Pletal 50 mg p.o. b.i.d. 6. Farxiga 10 mg p.o. daily. 7. Pristiq ER 100 mg p.o. daily. 8. Digoxin 125 mcg p.o. daily. 9. Diltiazem ER 180 mg p.o. daily. 10. Colace 200 mg p.o. at bedtime. 11. Lasix 40 mg p.o. b.i.d. 12. Gabapentin 300 mg p.o. t.i.d. 13. Pendleton 5/325, 1 each p.o. t.i.d. p.r.n. 14. Lantus 60 units subcutaneously b.i.d. 15. Humalog 1 each p.o. as directed. 16. Levofloxacin 500 mg p.o. daily. 17. Synthroid 25 mcg p.o. q.a.m. 18. Cozaar 100 mg p.o. daily. 19. Melatonin 3 mg p.o. at bedtime. 20. Metformin 1000 mg p.o. at bedtime. 21. Olanzapine 10 mg p.o. at bedtime. 22. MiraLAX 17 g p.o. daily. 23. Klor-Con 20 mEq p.o. daily. 24. 1-1 one each p.o. daily. 25. Xarelto 20 mg p.o. daily. FOLLOWUP: The patient is being discharged back to [facility] where she is a long- term resident. The patient can return to the ED for any worsening of symptoms. DISCHARGE TIME: 30 minutes. Dictated by MICHAEL Pelayo for Tito Almanzar MD cc: Tito Almanzar MD
== END 2017-02-09 11:35 ==
LOC: ED 03:54 → 3N 09:41 → SUATTDRO 09:41 → 3S 09:55 → 3N 02-07 13:04
PROVIDERS: ATTEND Internal Medicine

== ENCOUNTER 2017-03-20 09:04 | Inpatient (IN) ==
[2017-03-20 09:17] LABS: ALLEN TEST YES; BLOOD TYPE ARTERIAL; DRAW SITE R RADIAL; METHB 0.8 % (0.0-1.5); O2(CT) 13.7 mL/dL (15.0-23.0); PO2(98.6) 49 mmHg (60-100); SAMPLE BLOOD; SAO2 87.4 % (95.0-100.0); THB 11.5 g/dL (11.5-17.4); pH(98.6) 7.29 (7.35-7.45)
[2017-03-20 09:18] LABS: MODALITY CANNULA
[2017-03-20 09:21] LABS: PCO2(98.6) 87 mmHg (35-45)
[2017-03-20 09:26] LABS: MANUAL DIFF NEEDED? NO
[2017-03-20] MEDS ORDERED: LASIX IV ONE (09:27)
--- NOTE | 2017-03-20 09:27 | Diag Imaging Result Doc PS360 ---
CHEST-1 VIEW - 03/20/2017 INDICATION: sob TECHNIQUE: COMPARISON: 02/06/2017 FINDINGS: Stable significant cardiomegaly and pulmonary vascular congestion. There is worse patchy interstitial infiltrate/edema diffusely and bilaterally. No pneumothorax or large effusion. IMPRESSION: Worse interstitial pulmonary edema. Cardiomegaly and pulmonary vascular congestion. Electronically signed by Randy Goss 03/20/2017 9:25 AM
[2017-03-20 09:31] LABS: BASO% 0.3 % (0.0-0.8); EOS# 0.15 X1000 (0.0-0.7); EOS% 1.2 % (0.0-10.0); HEMATOCRIT 38.7 % (37.0-47.0); HEMOGLOBIN 11.5 g/dL (12.0-16.0); IMM GRAN# 0.03 X1000 (0.0-0.04); IMM GRAN% 0.2 % (0.0-0.5); LYMPH# 1.07 X1000 (1.2-3.4); LYMPH% 8.4 % (20.5-51.1); MCH 29.1 PG (27-31); MCHC 29.7 g/dL (33-37); MONO# 0.87 X1000 (0.11-0.59); MONO% 6.8 % (1.7-9.3); MPV 10.4 FL (7.4-10.4); NEUT% 83.1 % (42.2-75.2); PLT 326 X1000 (130-400); RBC 3.95 XMIL (4.2-5.4)
--- NOTE | 2017-03-20 09:43 | PROVIDER DOCUMENTATION ---
This chart was entered by Jory Burton Scribe, acting as scribe for Rangel Watt MD. HPI-Respiratory General - General Chief Complaint: Shortness of Breath Stated Complaint: sob/ low 02 sat Time Seen by Provider: 03/20/17 09:25 Source: family, EMS Allergies/Adverse Reactions: Patient Allergies Allergy/AdvReac Type Severity Reaction Status Date / Time cephalexin [From Keflex] Allergy Mild Unknown Verified 02/06/17 04:24 Home Medications: Home Medication List Medication Instructions Recorded Confirmed Last Taken Type Acetaminophen [Tylenol] 1 each PO TID PRN 02/06/17 02/06/17 Unknown History Alprazolam [Xanax] 0.25 mg PO TID 02/06/17 02/06/17 Unknown History Atorvastatin Calcium [Lipitor] 10 mg PO QHS 02/06/17 02/06/17 Unknown History Cilostazol [Pletal] 50 mg PO BID 02/06/17 02/06/17 Unknown History Dapagliflozin Propanediol [Farxiga] 10 mg PO DAILY 02/06/17 02/06/17 Unknown History Desvenlafaxine Succinate [Pristiq 100 mg PO DAILY 02/06/17 02/06/17 Unknown History ER] Digoxin [Lanoxin] 1 each PO DAILY 02/06/17 02/06/17 Unknown History Diltiazem HCl [Diltiazem 24Hr ER] 1 each PO DAILY 02/06/17 02/06/17 Unknown History Docusate Sodium [Colace] 200 mg PO QHS 02/06/17 02/06/17 Unknown History Furosemide [Lasix] 40 mg PO BID 02/06/17 02/06/17 Unknown History Gabapentin 300 mg PO TID 02/06/17 02/06/17 Unknown History Hydrocodone/APAP 5 mg/325 mg 1 each PO TID PRN 02/06/17 02/06/17 Unknown History [Friendship-5] Insulin Glargine [Lantus] 60 units SUBQ BID 02/06/17 02/06/17 Unknown History Insulin Lispro [Humalog] 1 each PO DIRECTED 02/06/17 02/06/17 Unknown History Levothyroxine Sodium [Synthroid] 25 mcg PO QAM 02/06/17 02/06/17 Unknown History Losartan Potassium [Cozaar] 100 mg PO DAILY 02/06/17 02/06/17 Unknown History Melatonin 3 mg PO QHS 02/06/17 02/06/17 Unknown History Metformin HCl [Metformin HCl ER] 1 each PO QHS 02/06/17 02/06/17 Unknown History Olanzapine 10 mg PO QHS 02/06/17 02/06/17 Unknown History Polyethylene Glycol 3350 [Miralax] 1 each PO DAILY 02/06/17 02/06/17 Unknown History Potassium Chloride E.r. [Klor-Con] 20 meq PO DAILY 02/06/17 02/06/17 Unknown History Vit/Fe Fumarate/FA 1 each PO DAILY 02/06/17 02/06/17 Unknown History [ 1-1 Tablet] Rivaroxaban [Xarelto] 20 mg PO DAILY 02/06/17 02/06/17 Unknown History Carvedilol [Coreg] 25 mg PO BID #0 02/09/17 02/06/17 Unknown Rx Levofloxacin 500 mg PO DAILY #10 tablet 02/09/17 Unknown Rx - History of Present Illness-Resp Nature of Presenting Problem: Pt is a 82 y/o F presents to the ED via EMS with SOB. EMS states prison stated Pt had a choking episode this am. EMS states Pt was diaphoretic on arrival. EMS states prison stated SOB started becoming short of breath 20 prior to EMS arrival. Pt's family states history of CHF and being a former smoker. EMS states 87 O2 sat in route to ED. Quality of Pain: reports: tightness Severity in ED: reports: moderate Onset/Duration: reports: this morning Timing: reports: still present Exposure: reports: unknown cause Cough Quality/Degree: reports: no cough Current Respiratory Medication Therapy: Initiated see nurses note Modifying Factors: improves with: nothing Associated Symptoms: reports: shortness of breath, wheezing. denies: chest pain /soreness, cough, dizziness, earache, facial pain, fever/chills, flu-like symptoms, headache, heart racing, hurts to breathe, hyperventilating, lightheadedness, muscle/bodyaches, nasal congestion, nasal drainage, sinus pain , short of breath, sore throat, sweaty Similar Symptoms Previously?: Yes (2 to 3 mths ago ) Recently seen or treated by another doctor?: Yes (Pt's family states Pt was admitted 2 or 3 mths ago) Review of Systems - Adult - REVIEW OF SYSTEMS - ADULT Constitutional: reports: no symptoms reported Eyes: reports: no symptoms reported Ears, Nose, Mouth & Throat: reports: no symptoms reported Cardiovascular: reports: no symptoms reported Respiratory: reports: shortness of breath, wheezing. denies: cough Gastrointestinal: reports: no symptoms reported Genitourinary: reports: no symptoms reported Musculoskeletal: reports: no symptoms reported Integumentary: reports: no symptoms reported Neurological: reports: no symptoms reported Psychiatric: reports: no symptoms reported Endocrine: reports: no symptoms reported Hematologic/Lymphatic: reports: no symptoms reported Allergic/Immunologic: reports: no symptoms reported All Other Systems: Reviewed and Negative Past History - Adult - PAST MEDICAL HISTORY-ADULT Review of Records: reports: Nursing Assessment Review, Medications Reviewed, Social history reviewed & non-contributory. Major Childhood Illnesses: reports: denies history Cardiovascular: reports: A-Fib, CHF, HTN, hyperlipidemia Respiratory: reports: denies history Gastrointestinal: reports: denies history Obstetrical/Gynecological: reports: denies history Genitourinary: reports: kidney disease Musculoskeletal: reports: denies history Neurological: reports: dementia Psychiatric: reports: denies history Endocrine/Immune: reports: Diabetes Other Conditions: reports: blindness - PRIOR SURGERIES/PROCEDURES Surgical/Procedure History: reports: cholecystectomy, hysterectomy, joint replacement (right knee) - PRIOR HOSPITALIZATIONS Prior Hospitalizations: reports: for similar symptoms - IMMUNIZATION STATUS Childhood Immunizations: See Nurse Assessment Flu Vaccine: See Nurse Assessment - FAMILY HISTORY Family History: CAD over 55 yo - SOCIAL HISTORY Smoking: quit greater than 1 year, cigarettes Substance Use: denies Living Situation: family Physical Exam-General - PHYSICAL EXAM-ADULT Initial Vital Signs Reviewed: Yes - CONSTITUTIONAL General Appearance: alert, mild distress, slow to respond. negative: lethargic - EYES Eyes: PERRL/EOMI, pink conjunctivae. negative: pale conjunctivae, sunken eyes - HEAD, EARS, NOSE, MOUTH & THROAT HENMT: normal ENT inspection. negative: angioedema, hearing deficit - NECK Neck: normal inspection. negative: lymphadenopathy, tender lateral - RESPIRATORY Respiratory: chest non-tender, crackles (bilateral), wheezing (bilateral), increased rate. negative: lungs clear, pain on inspiration - CARDIOVASCULAR Cardiovascular: normal peripheral pulses, regular rate, rhythm. negative: tachycardia, systolic murmur - GASTROINTESTINAL (ABDOMEN) Abdominal Exam: normal bowel sounds, non tender, soft. negative: distended, guarding, hernia - LYMPHATIC Lymphatic: no adenopathy. negative: enlargement, streaking - MUSCULOSKELETAL Back Exam: normal inspection. negative: ecchymosis, swelling Extremity: normal inspection. negative: deformity, erythema, swelling - SKIN Integumentary: normal color, normal turgor, warm/dry. negative: diaphoresis, ecchymosis, jaundice, rash - NEUROLOGIC Neurologic: grossly normal. negative: aphasia, facial droop - PSYCHIATRIC Psych/Mental Status: normal mood/affect, oriented x 3. negative: paranoid, tearful Progress - PLAN OF CARE/RESULTS Progress/Plan/Lab Results: Vital Signs - 8 hr 03/20/17 09:13 03/20/17 09:16 Temperature 98.6 F Pulse Rate 89 94 H Respiratory Rate 36 H 18 Blood Pressure 164/77 164/77 O2 Sat by Pulse Oximetry 85 L 99 Laboratory Results - last 24 hr 03/20/17 03/20/17 09:07 09:09 WBC 12.79 H RBC 3.95 L Hgb 11.5 L Hct 38.7 MCV 98.0 MCH 29.1 MCHC 29.7 L RDW Std Deviation 15.4 H Plt Count 326 MPV 10.4 Immature Gran % (Auto) 0.2 Neut % (Auto) 83.1 H Lymph % (Auto) 8.4 L Wayne % (Auto) 6.8 Eos % (Auto) 1.2 Baso % (Auto) 0.3 Immature Gran # (Auto) 0.03 Neut # (Auto) 10.63 H Lymph # (Auto) 1.07 L Wayne # (Auto) 0.87 H Eos # (Auto) 0.15 Baso # (Auto) 0.04 Specimen Type ARTERIAL Sample Site R RADIAL pH 7.29 L pCO2 87 H* pO2 49 L* HCO3 34.0 H Base Excess 12.0 H Oxyhemoglobin 84.8 L* ABG O2 Sat (Calculated) 13.7 L ABG O2 Saturation 87.4 L ABG Carboxyhemoglobin 2.10 ABG Methemoglobin 0.8 Babak Test YES A-a O2 Difference 156.0 Total Hemoglobin 11.5 Lactate 1.80 Liter Flow 6.0 Blood Gas Modality CANNULA FiO2 % 44.0 Orders Category Date Time Status IV Insertion ORDERED Care 03/20/17 09:10 Completed Nursing- Obtain EKG once Care 03/20/17 09:16 Active CHEST-1 VIEW [RAD] Stat Exams 03/20/17 09:07 Completed ABG [RESP] Routine Lab 03/20/17 09:07 Completed BLOOD CULTURE [BLDCUL] Stat Lab 03/20/17 09:12 Received CBC WITH DIFF [HEME] Stat Lab 03/20/17 09:09 Completed CK PROFILE [SP CHEM] Stat Lab 03/20/17 09:09 Received COMPREHENSIVE METABOLIC PANEL [CHEM] Stat Lab 03/20/17 09:09 Received LACTATE, PLASMA [CHEM] Stat Lab 03/20/17 09:09 Received TROPONIN T Stat Lab 03/20/17 09:09 Received UA NIMS W/REFLEX CULT [URINALYSIS] Stat Lab 03/20/17 09:10 Uncollected Furosemide [Lasix] Med 03/20/17 09:27 Discontinued 40 mg IV NOW ONE Result Diagrams: 03/20/17 09:09 - EKG 1 Time of EKG reading by physician:: 09:03 EKG Read and Signed by:: Rangel Watt EKG Interpretation (*Must complete 3 of following elements*): Abnormal (ST & T wave abnormality, consider inferolateral ischemia) Rate: 101 Rhythm: atrial fibrillation with rapid ventricular response Comments: septal infarct, age undetermined - XRAY 1 XRAY Study: Chest Impression: Abnormal (Cardiomegaly and pulmonary vascular congestion) XRAY Interpretation: Worse interstitial pulmonary edema. - CONSULTS/PCP/HOSPITALIST Notification #1 *Consult/PCP/Hospitalist*: MICHAEL Luther for Hospitalist Time Discussed: 09:36 (Dr. Martins accepted admit ) Reason/Comments: Dr. Watt consults with MICHAEL Luther for admit of Pt Departure - Departure Date of Disposition Decision: 03/20/17 Time of Disposition Decision: 09:37 DIAGNOSIS: CHF (congestive heart failure), Pulmonary edema Disposition: ADMITTED INPATIENT 09 Certified Medical Emergency: Emergent Condition: Fair - Critical Care Note This patient required my direct & personal management of CC.: Yes Total Time (mins): 35 Critical Care Statement: This patient required my direct personal management to treat or rule out processes, the absence of which, could potentiallly result in sudden, clinically significant life or limb threatening deterioration. Attestation - Physician/ KELSEA Attestation The physician spent face to face time with patient:: Yes Advanced Practice Provider documentation review:: Supervising physician onsite and consulted in the evaluation and care of this patient. The physician did have a face to face encounter with the patient. This chart was documented by the indicated scribe, (Jory Burton Scribe) and accurately reflects the services I performed and decisions made by me, Rangel Watt MD, as attested by the provider's signature.
[2017-03-20 10:12] LABS: URINE MICRO REVIEW NEEDED? NO; URINE SOURCE CATH
[2017-03-20 10:19] LABS: BILIRUBIN URINE NEGATIVE (NEGATIVE); BLOOD URINE NEGATIVE (NEGATIVE); COLOR YELLOW; GLUCOSE URINE >1000 mg/dL (NEGATIVE); LEUKOCYTES URINE SMALL (NEGATIVE); NITRITE URINE NEGATIVE (NEGATIVE); PROTEIN URINE TRACE mg/dL (NEGATIVE); SP GRAVITY URINE 1.014; TURBIDITY URINE HAZY (CLEAR); UR EPITHELIAL CELLS >10 /HPF (<10); URINE BACTERIA 4+ /HPF; URINE CULTURE NEEDED? YES; URINE RBC <10 /HPF (<10); UROBILINOGEN URINE 2 mg/dL (NORMAL)
[2017-03-20 10:35] LABS: ALBUMIN 3.7 g/dL (3.5-5.0); CALCIUM 9.1 mg/dL (8.8-10.2); POTASSIUM 4.4 mmol/L (3.5-5.1); TOTAL BILIRUBIN 0.53 mg/dL (0.20-1.00); TOTAL PROTEIN 8.5 g/dL (6.3-8.3)
[2017-03-20] MEDS ORDERED: DUONEB (A & A) INH PRN (11:31)
[2017-03-20] MEDS ORDERED: NORCO-5 PO PRN (12:04)
[2017-03-20] MEDS ORDERED: INSULIN LISPRO PO SCH (12:04)
[2017-03-20 12:17] LABS: ALLEN TEST YES; BE 17.2 mmoll (-3.0-3.0); BLOOD TYPE ARTERIAL; DRAW SITE L RADIAL; METHB 1.3 % (0.0-1.5); MODALITY CANNULA; PO2(98.6) 96 mmHg (60-100); SAMPLE BLOOD; THB 11.1 g/dL (11.5-17.4); pH(98.6) 7.39 (7.35-7.45)
[2017-03-20 12:18] LABS: PCO2(98.6) 75 mmHg (35-45)
[2017-03-20] MEDS: NEURONTIN PO SCH ×2 (12:59→17:20)
[2017-03-20] MEDS: XANAX PO SCH ×2 (12:59→17:20)
[2017-03-20] MEDS: LASIX IV SCH (12:59)
[2017-03-20] MEDS: MERREM 1 GM in NS 50 ML IV SCH ×2 (13:00→22:06)
--- NOTE | 2017-03-20 13:37 | CONSULTATION ---
DATE OF CONSULTATION: 03/20/2017 DIAGNOSIS: Diastolic heart failure. HISTORY OF PRESENT ILLNESS: Ms. Hafsa Pappas is a 82-year-old lady who was admitted and discharged in January 2017, is a resident of [facility] with multiple medical problems including heart failure, diabetes, chronic atrial fibrillation, macular degeneration with legally blind, arthritis, hyperlipidemia, hypertension, is DNR level 1. Denies any chest pain. She was noted to have more shortness of breath, came to the emergency room. Chest x-ray revealed heart failure and the patient was given IV Lasix and started on IV Lasix. Since then, patient has improved. Patient states that she has been given her medicines on a regular basis. She denies any chest pain. Excess capacity significantly limited. REVIEW OF SYSTEM: 14-point review of systems was done. GI: She does not complain of any nausea, vomiting. Central nervous system: No focal weakness to suggest a new CVA, TIA. : There is no dysuria or hematuria. PAST MEDICAL HISTORY: 1. Atrial fibrillation. 2. Heart failure. 3. Cholecystectomy. 4. Knee surgery. 5. Hysterectomy. 6. Macular degeneration and blindness. 7. Hypertension, hyperlipidemia, diabetes. 8. Diastolic heart failure. ALLERGIES: She is allergic to cephalexin. MEDICATIONS: Include nebulizers, Xanax 0.25 mg t.i.d., atorvastatin 10, Coreg 25 mg p.o. b.i.d., Pletal 50 b.i.d., digoxin 0.125 mg a day, Cardizem 180 mg per day, Lasix 40 mg IV b.i.d., gabapentin 300 mg p.o. t.i.d., hydrocodone as needed, insulin Lantus 60 units subcu b.i.d., levothyroxine 25 mcg a day, losartan 100 mg a day, has been started on antibiotics, Zyprexa 10 mg p.o. at bedtime, Xarelto 20 mg a day. PHYSICAL EXAM: Vital signs: On examination blood pressure 115/64. Cardiovascular: Normal jugular venous pressure. First and second heart sounds heard. There was ejection systolic murmur. There was no S3 gallop. Respiratory: Normal air entry. There was bibasilar scattered inspiratory crepitations. Abdomen: Soft, nontender. There was no guarding or rigidity. Bowel sounds were heard. Central nervous system: Was answering questions appropriately. Was moving all 4 extremities. Detailed central nervous system examination not performed. Patient is legally blind. LABORATORY EXAMINATION: Revealed sodium 146, potassium 4.4, BUN 18, creatinine 1.0. Troponin and CK were negative. Hemoglobin 11.5, WBC 12.79, platelet count 326,000. ASSESSMENT AND PLAN: 1. Ms. Hafsa Pappas is 82-year-old lady with history of chronic atrial fibrillation, macular degeneration, legally blind, history of diastolic heart failure, hyperlipidemia, hypertension, hypothyroidism is admitted with increasing shortness of breath. Patient is in heart failure. Her echocardiogram done recently revealed ejection fraction of 60%. There is moderate aortic stenosis associated with mild aortic regurgitation with severe pulmonary arterial hypertension. 2. Patient is do not resuscitate level 1. We will manage her medically. She is comfortable, does not complain of any chest pain. Continue her medications for atrial fibrillation. Digoxin level to be checked in the morning. 3. As far as heart failure is concerned, she is on Lasix 40 mg twice daily. Transition to p.o. Lasix once she is euvolemic. 4. Diabetes. Continue with the current medications. 5. Hypertension. Blood pressure is under control. I have not made any changes. White counts were elevated. She has been started on antibiotics. I have not made any other changes. Thank you for the consult. cc: Jem Martínez MD
[2017-03-20] MEDS ORDERED: INSULIN PEN NEEDLES ONE (15:53)
--- NOTE | 2017-03-20 15:54 | HISTORY AND PHYSICAL ---
CHIEF COMPLAINT: Shortness of breath. HISTORY OF PRESENT ILLNESS: Mrs. Pappas is an 82-year-old female, well known to our service. She was most recently discharged on 02/09/2017. At that time she carried a diagnosis of pulmonary hypertension and congestive heart failure, diastolic type. She currently resides at [facility] and came today for apparent shortness of breath. The patient cannot give any type of history secondary to cognitive function and being on BiPAP. Daughter, who is at the bedside, states that she was notified this morning that the patient looked "sick " and was sent here for evaluation. Specifics were not made to the daughter. Apparently when she got to the ER she was in respiratory distress with low O2 saturations. A chest x-ray revealed pulmonary edema. ABG revealed hypercapnic and hypoxic respiratory failure. She has been given Lasix and BiPAP. However, she is a DNR level 1. She does have a mildly elevated white count and a urinary tract infection. We are going to admit her to the floor for further treatment and evaluation. PAST MEDICAL HISTORY: 1. Diastolic heart failure. 2. Pulmonary hypertension as evidenced by most recent echo with PA systolic pressure of 80. 3. Diabetes mellitus. 4. Hypertension. 5. Dementia. 6. Arthritis. 7. Chronic atrial fibrillation. 8. Macular degeneration with blindness in the right eye. 9. Anxiety and depression. PAST SURGICAL HISTORY: She has had right knee surgery, hysterectomy, cholecystectomy, cataract surgery. SOCIAL HISTORY: Patient is . She lives at [facility]. She has a daughter at the bedside. She has a remote history of nicotine dependence but does not currently smoke, drink, or use drugs. REVIEW OF SYSTEMS: Unable to obtain. FAMILY HISTORY: Noncontributory. ALLERGIES: To Keflex. HOME MEDICATIONS: Currently being compiled. PHYSICAL EXAMINATION: VITAL SIGNS: Blood pressure is 119/64, heart rate 79, respiratory rate is 23, O2 saturation on 50% BiPAP is 100%, temperature is 98.6 degrees. GENERAL: Frail and elderly appearing, 82-year-old female, lying in hospital bed, in mild respiratory distress. NEUROLOGIC: The patient follows commands with globalized weakness but no focal deficits. She is confused. HEENT: Head is atraumatic and normocephalic. Her pupils are equal, round, reactive to light. Oral mucosa is moist. Trachea is midline. CHEST: Bibasilar crackles. CV: Irregular. S1, S2 is noted. GI: Soft, nondistended, nontender. Bowel sounds positive. EXTREMITIES: Trace edema. Pulses diminished but palpable. DIAGNOSTIC DATA: Chest x-ray shows pulmonary edema and increased vascular congestion. EKG: Atrial fibrillation, nonspecific ST changes. WBC 12.79, hemoglobin 11.5, hematocrit 38.7, platelet count 326,000. ABG on nasal cannula, pH 7.29, CO2 87, O2 49, bicarb 84 , oxyhemoglobin 84.8%. Sodium 146, potassium 4.4, chloride 99, CO2 36, anion gap 11, BUN 18, creatinine 1, glucose 198, calcium 9.1. AST 23, ALT 16, alkaline phosphatase 118. Troponin negative. Protein 8.5. UA shows a urinary tract infection. ASSESSMENT AND PLAN: 1. Acute hypercapnic and hypoxic respiratory failure secondary to diastolic heart failure: She has been given IV diuresis in the ER. We will continue this on the floor and continue her beta-wellington. We will consult cardiology as well. Follow strict I's and O's , daily weights, and telemetry. 2. Urinary tract infection: Meropenem has been started. She does have a mildly elevated white count. Lactic acid is within normal limits. 3. Chronic atrial fibrillation, rate controlled: Will continue her Xarelto. 4. Pulmonary hypertension: Will diurese and continue home medications. Cardiology has been consulted. 5. Hypertension and hyperlipidemia: Chronic and stable. Continue home medications. 6. Diabetes mellitus: Continue home medications and add sliding scale. We are going to withhold her metformin for now. 7. Deep vein thrombosis prophylaxis will be provided with her home medication, Xarelto. 8. We did discuss palliation with the family. We will also order a palliative care consult as the patient is chronically ill and it would seem that she will continue to come in in respiratory failure and these episodes will become more frequent and more acute with every visit. I personally performed a face to face evaluation on this patient, also I review laboratory work and images, I agree with the assessment and treatment, antibiotics and breathing treatment, diuresis, Brant Nick MD. Dictated by MICHAEL Khan for Miguelangel Veronica cc: Michael J. MikMICHAEL scott MD [facility]
[2017-03-20] MEDS: HUMALOG SUBQ SCH ×2 (16:51→22:04)
[2017-03-20] MEDS: DUONEB (A & A) INH SCH ×2 (20:01→23:23)
[2017-03-20] MEDS: LIPITOR PO SCH (22:05)
[2017-03-20] MEDS: PLETAL PO SCH (22:05)
[2017-03-20] MEDS: COREG PO SCH (22:05)
[2017-03-20] MEDS: MELATONIN PO SCH (22:05)
[2017-03-20] MEDS: COLACE PO SCH (22:06)
[2017-03-20] MEDS: ZYPREXA PO SCH (22:06)
[2017-03-20] MEDS: LANTUS SUBQ SCH (22:07)
[2017-03-21] MEDS: DUONEB (A & A) INH SCH ×7 (03:14→23:39)
[2017-03-21] MEDS: LASIX IV SCH ×2 (04:35→18:02)
[2017-03-21 05:58] LABS: HEMATOCRIT 33.7 % (37.0-47.0); MCH 29.6 PG (27-31); MCHC 29.7 g/dL (33-37); MCV 99.7 FL (81-99); MPV 10.1 FL (7.4-10.4); RBC 3.38 XMIL (4.2-5.4)
[2017-03-21] MEDS: SYNTHROID PO SCH (06:31)
[2017-03-21] MEDS: MERREM 1 GM in NS 50 ML IV SCH ×3 (06:34→21:29)
[2017-03-21 06:46] LABS: CALCIUM 8.9 mg/dL (8.8-10.2); POTASSIUM 3.6 mmol/L (3.5-5.1)
[2017-03-21] MEDS: HUMALOG SUBQ SCH ×4 (07:35→21:21)
[2017-03-21] MEDS: XANAX PO SCH ×3 (08:51→18:02)
[2017-03-21] MEDS: NEURONTIN PO SCH ×3 (08:51→18:02)
[2017-03-21] MEDS: PRECARE PO SCH ×2 (08:51→09:16)
[2017-03-21] MEDS: LANTUS SUBQ SCH ×2 (08:51→23:36)
[2017-03-21] MEDS: CARDIZEM LA PO SCH (08:52)
[2017-03-21] MEDS: MIRALAX PO SCH (08:52)
[2017-03-21] MEDS: PRISTIQ ER PO SCH (08:52)
[2017-03-21] MEDS: PLETAL PO SCH ×2 (08:52→21:28)
[2017-03-21] MEDS: XARELTO PO SCH (08:52)
[2017-03-21] MEDS: LANOXIN PO SCH (08:52)
--- NOTE | 2017-03-21 16:51 | PROGRESS NOTE ---
DATE: 03/21/2017 SUBJECTIVE: 82-year-old white female well known to our service, she recently discharged on 02/09/2017. She came in with a diagnosis of pulmonary hypertension, congestive heart failure diastolic type, currently resides at [facility] and came back apparently shortness of breath. Patient cannot give any type of history secondary cognitive function and on BiPAP, daughter who is bedside states that she notify this morning patient looked sick and was sent here for evaluation, specifics were not made by the daughter. She got to the ER was respiratory distress with low O2 saturations. Chest x-ray revealed pulmonary edema. ABGs revealed hypercapnic hypoxic respiratory failure. Began on Lasix and BiPAP, she is DNR level 1, mildly elevated white count, urinary tract infection was suspected and they admit her. PAST MEDICAL HISTORY: Reviewed. 1. Diastolic heart failure. 2. Pulmonary hypertension. 3. Diabetes mellitus type 2. 4. Hypertension. 5. Dementia. 6. Arthritis. 7. Chronic atrial fibrillation. 8. Macular degeneration with blindness in right eye. 9. Anxiety, depression. PAST SURGICAL HISTORY: Had right knee surgery, hysterectomy, cholecystectomy, cataract surgery. So was admitted with acute hypercapnic hypoxic respiratory failure. Dr. Martínez has evaluated, he felt she had a history of chronic atrial fibrillation, macular degenerative legally blind, history of diastolic heart failure, hyperlipidemia, hypertension, hypothyroidism and was admitted with shortness of breath. Her echocardiogram revealed ejection fraction 60%. There is moderate aortic stenosis associated with mild aortic regurgitation, severe pulmonary arterial hypertension and felt like she was on maximum medical therapy, did not feel we were going to pursue anything invasive and so from cardiac standpoint medically stable can [facility]. EXAM: Vital signs: Today temperature 99 degrees, pulse 69, respirations 16, blood pressure 115/48. HEENT: Pupils are equal, round. CVP less than 6 cm. Lungs: Clear in all lung villanueva. Cardiovascular: Regular rhythm, rate without murmur or S3. Abdomen: Soft. Skin: Warm and dry. Good urine output 1600 mL. LAB: Review her lab creatinine is 1.0. She had 4+ bacteria, small amount of leukocytes. Review of her orders she is diabetic, do not see any change in the orders, she is on meropenem for urinary tract infection 1 g IV q.8 hours. We will advance her diet to diabetic diet. cc: Babak Renner MD
[2017-03-21] MEDS: COZAAR PO SCH (18:56)
[2017-03-21] MEDS: COREG PO SCH ×2 (18:56→23:36)
[2017-03-21] MEDS: COLACE PO SCH (21:28)
[2017-03-21] MEDS: LIPITOR PO SCH (21:28)
[2017-03-21] MEDS: MELATONIN PO SCH (21:28)
[2017-03-21] MEDS: ZYPREXA PO SCH (21:28)
[2017-03-22] MEDS: DUONEB (A & A) INH SCH ×6 (03:23→22:29)
[2017-03-22] MEDS: LASIX IV SCH ×2 (05:14→16:19)
[2017-03-22] MEDS: MERREM 1 GM in NS 50 ML IV SCH ×3 (05:14→21:14)
[2017-03-22] MEDS: HUMALOG SUBQ SCH ×4 (06:02→20:23)
[2017-03-22] MEDS: SYNTHROID PO SCH (06:03)
[2017-03-22 06:06] LABS: HEMATOCRIT 35.7 % (37.0-47.0); HEMOGLOBIN 10.6 g/dL (12.0-16.0); MCH 29.2 PG (27-31); MCHC 29.7 g/dL (33-37); MCV 98.3 FL (81-99); MPV 10.1 FL (7.4-10.4); RBC 3.63 XMIL (4.2-5.4)
[2017-03-22 07:14] LABS: AGAP 9; BUN 18 mg/dL (8-22); CALCIUM 8.7 mg/dL (8.8-10.2); CHLORIDE 95 mmol/L (98-107); COSMO 288; POTASSIUM 4.1 mmol/L (3.5-5.1); SODIUM 143 mmol/L (136-145); TCO2 39 mmol/L (25-35)
--- NOTE | 2017-03-22 09:55 | PROGRESS NOTE ---
DATE: 03/22/2017 SUBJECTIVE: Ms. Pappas says she does not feel very good, but she is breathing comfortably. She wants to try and get up. She has left foot drop. It is noted she still has her Crespo catheter in place. Does not appear to be in any distress. OBJECTIVE: General: On exam, she has eaten a little bit of her breakfast. She has food all over her chest and belly, and I think she spilled some liquid on her gown as well. Vital signs: Temperature 98.4 degrees, pulse 69, respirations 16, blood pressure 121/67. Lungs: Clear in all lung villanueva anterolateral. Cardiovascular exam: Regular rhythm and rate without murmur or S3. Abdomen: Soft. Crespo catheter in place. Extremities: No pedal edema. : Urine output was over 3.3 L. LABORATORIES: Lab from today: White count 7570, hematocrit 35 and stable, platelet count 282,000. Chemistries: Sodium 143, potassium 4.1, chloride 95, BUN 18, creatinine 0.8. Blood sugars 142, 124 and 125. ASSESSMENT AND PLAN: 1. She had recently been discharged on 02/09/2017 diagnosed with pulmonary hypertension, congestive heart failure which is predominantly diastolic. She is a resident of [facility]. She appears to be stable from a volume pressure standpoint with a history of diastolic heart failure and pulmonary hypertension. The patient has underlying chronic atrial fibrillation. Rate is controlled. From a cardiology standpoint, she is able to go back to the senior living. 2. Left foot drop. We will ask physical therapy to evaluate. Also ask to evaluate. See about trying to get her to ambulate and getting some strength back. 3. Diabetes mellitus type 2. Blood sugars well controlled. 4. Dementia. 5. Chronic atrial fibrillation, aware. Rate controlled. 6. Macular degeneration. Blindness in right eye. 7. Anxiety and depression. I do not see anything to change on her medications at this point. She is on Xarelto. Ask physical therapy to evaluate for her foot drop and also potential for rehabilitation. cc: Babak Renner MD
[2017-03-22] MEDS: PRECARE PO SCH (10:04)
[2017-03-22] MEDS: PLETAL PO SCH ×2 (10:04→20:22)
[2017-03-22] MEDS: NEURONTIN PO SCH ×3 (10:04→20:22)
[2017-03-22] MEDS: MIRALAX PO SCH (10:04)
[2017-03-22] MEDS: XARELTO PO SCH (10:04)
[2017-03-22] MEDS: XANAX PO SCH ×3 (10:04→20:23)
[2017-03-22] MEDS: PRISTIQ ER PO SCH (10:05)
[2017-03-22] MEDS: COREG PO SCH ×2 (10:08→20:23)
[2017-03-22] MEDS: LANOXIN PO SCH (10:08)
[2017-03-22] MEDS: COZAAR PO SCH (12:36)
[2017-03-22] MEDS: LANTUS SUBQ SCH ×2 (12:36→20:23)
[2017-03-22] MEDS: CARDIZEM LA PO SCH (12:37)
[2017-03-22] MEDS: COLACE PO SCH (20:22)
[2017-03-22] MEDS: LIPITOR PO SCH (20:22)
[2017-03-22] MEDS: ZYPREXA PO SCH (20:22)
[2017-03-22] MEDS: MELATONIN PO SCH (20:22)
[2017-03-23] MEDS: DUONEB (A & A) INH SCH ×6 (03:19→23:23)
[2017-03-23] MEDS: LASIX IV SCH ×2 (05:10→17:23)
[2017-03-23] MEDS: SYNTHROID PO SCH ×2 (05:10→07:24)
[2017-03-23] MEDS: MERREM 1 GM in NS 50 ML IV SCH ×3 (05:10→21:04)
[2017-03-23 05:47] LABS: HEMATOCRIT 34.9 % (37.0-47.0); HEMOGLOBIN 10.6 g/dL (12.0-16.0); MCH 29.5 PG (27-31); MCHC 30.4 g/dL (33-37); MCV 97.2 FL (81-99); MPV 10.3 FL (7.4-10.4); RBC 3.59 XMIL (4.2-5.4)
[2017-03-23] MEDS: HUMALOG SUBQ SCH ×4 (06:49→21:04)
--- NOTE | 2017-03-23 08:58 | Diag Imaging Result Doc PS360 ---
CHEST-PORTABLE - 03/23/2017 INDICATION: pneumonia TECHNIQUE: COMPARISON: 03/20/2017 FINDINGS: Stable extensive cardiomegaly and pulmonary vascular congestion. There is slight improvement in the diffuse bilateral interstitial pulmonary edema. No pneumothorax or large effusion. IMPRESSION: Improvement in the pulmonary edema. Electronically signed by Randy Goss 03/23/2017 8:56 AM
--- NOTE | 2017-03-23 09:02 | PROGRESS NOTE ---
DATE: 03/23/2017 SUBJECTIVE: Ms. Pappas was resting comfortably, breathing comfortably. OBJECTIVE: Vital Signs: Temp 99.1 degrees, pulse 76, respirations 18, blood pressure 117/55. Lungs: Clear in all lung villanueva. Cardiovascular: Regular rhythm and rate without murmur or S3. Abdomen: Soft. Skin: Warm and dry. Urine output 3 L. LABORATORY DATA: White count 8790, hematocrit 34, platelet count 276,000. Sodium 142, potassium 4.0, chloride 96, bicarb 38, BUN 22, creatinine 0.9, blood sugars 194, 205, 180. ASSESSMENT AND PLAN: 1. History of pulmonary hypertension, congestive heart failure, predominantly diastolic. Volume pressure status appears good. Will go back to [facility] when able. 2. Left foot drop. Physical Therapy to evaluate and see if we can help with that. 3. Diabetes mellitus type 2. Sugar is controlled. 4. Dementia. 5. Chronic atrial fibrillation. Rate is controlled. 6. History of macular degeneration. 7. Anxiety and depression. I have reviewed her lab, and sugars are well controlled. I have reviewed her medications. She is still on meropenem 1 gram every 8 hours, and I believe we can stop that and change her to oral antibiotic if necessary. Most recent chest x-ray was on 03/20/2017. I will repeat one again today. cc: Babak Renner MD
[2017-03-23] MEDS: XANAX PO SCH ×3 (10:26→17:23)
[2017-03-23] MEDS: PRISTIQ ER PO SCH (10:26)
[2017-03-23] MEDS: CARDIZEM LA PO SCH (10:27)
[2017-03-23] MEDS: NEURONTIN PO SCH ×3 (10:27→17:23)
[2017-03-23] MEDS: XARELTO PO SCH (10:27)
[2017-03-23] MEDS: PLETAL PO SCH ×2 (10:27→21:04)
[2017-03-23] MEDS: LANOXIN PO SCH (10:31)
[2017-03-23] MEDS: MIRALAX PO SCH (10:32)
[2017-03-23] MEDS: PRECARE PO SCH (10:37)
[2017-03-23] MEDS: COREG PO SCH ×2 (16:59→21:04)
[2017-03-23] MEDS: LANTUS SUBQ SCH ×2 (17:00→21:03)
[2017-03-23] MEDS: COZAAR PO SCH (17:25)
[2017-03-23] MEDS: COLACE PO SCH (21:04)
[2017-03-23] MEDS: MELATONIN PO SCH (21:04)
[2017-03-23] MEDS: LIPITOR PO SCH (21:04)
[2017-03-23] MEDS: ZYPREXA PO SCH (21:04)
[2017-03-24] MEDS: DUONEB (A & A) INH SCH ×6 (03:20→22:55)
[2017-03-24] MEDS: MERREM 1 GM in NS 50 ML IV SCH ×4 (05:22→22:36)
[2017-03-24] MEDS: SYNTHROID PO SCH ×2 (05:22→07:02)
[2017-03-24] MEDS: LASIX IV SCH ×2 (05:22→16:55)
[2017-03-24] MEDS: HUMALOG SUBQ SCH ×4 (06:29→20:17)
--- NOTE | 2017-03-24 09:06 | PROGRESS NOTE ---
DATE: 03/24/2017 SUBJECTIVE: Ms. Pappas is awake. She says she feels terrible. Just gives out, no energy. She was quick to go back to sleep. I am going to decrease her Xanax down from 0.25 t.i.d. to twice a day. We will get Crespo catheter out and see if we can get her up and start getting ready for rehab. Her breathing is comfortable. No chest pain. OBJECTIVE: Vital signs: Temperature 98.6 degrees, pulse 87, respirations 22, blood pressure 120/56. Lungs: Clear in all lung villanueva. Cardiovascular: Regular rhythm and rate without murmur or S3. Abdomen: Soft. Skin: Warm and dry. URINE OUTPUT: 1800 mL. LAB: Reviewed from yesterday. White blood cell 8790, hematocrit 34, platelet count 276,000. Blood sugar 268, 221, 183. ASSESSMENT AND PLAN: 1. History of pulmonary hypertension and congestive heart failure, predominantly diastolic. Volume status looks good. Back to [facility] when able. 2. Left foot drop. Continue physical therapy and helpful braces. 3. Diabetes mellitus type 2. Sugar controlled. 4. Dementia. Aware. 5. Chronic atrial fibrillation. Rate controlled. 6. Macular degeneration. 7. Anxiety and depression. We are going to discontinue her Crespo catheter. Get her up and see if we can get her back to [facility]. Reviewed her orders. cc: Babak Renner MD
[2017-03-24] MEDS: COZAAR PO SCH (09:21)
[2017-03-24] MEDS: PRISTIQ ER PO SCH (09:21)
[2017-03-24] MEDS: NEURONTIN PO SCH ×3 (09:21→16:55)
[2017-03-24] MEDS: XARELTO PO SCH (09:21)
[2017-03-24] MEDS: PRECARE PO SCH (09:21)
[2017-03-24] MEDS: CARDIZEM LA PO SCH (09:21)
[2017-03-24] MEDS: COREG PO SCH ×3 (09:22→22:36)
[2017-03-24] MEDS: LANOXIN PO SCH (09:22)
[2017-03-24] MEDS: MIRALAX PO SCH (09:23)
[2017-03-24] MEDS: LANTUS SUBQ SCH ×2 (09:23→20:22)
[2017-03-24] MEDS: XANAX PO SCH ×3 (09:38→22:38)
[2017-03-24] MEDS: PLETAL PO SCH ×3 (09:38→22:37)
[2017-03-24] MEDS: COLACE PO SCH ×2 (19:40→22:35)
[2017-03-24] MEDS: LIPITOR PO SCH ×2 (19:41→22:36)
[2017-03-24] MEDS: ZYPREXA PO SCH ×2 (19:42→22:37)
[2017-03-24] MEDS: MELATONIN PO SCH ×2 (19:42→22:36)
[2017-03-25] MEDS: LASIX IV SCH ×2 (03:29→16:48)
[2017-03-25] MEDS: DUONEB (A & A) INH SCH ×4 (03:33→15:34)
[2017-03-25] MEDS: MERREM 1 GM in NS 50 ML IV SCH ×2 (05:58→14:17)
[2017-03-25] MEDS: SYNTHROID PO SCH ×2 (05:58→06:17)
[2017-03-25] MEDS: HUMALOG SUBQ SCH ×3 (05:59→16:47)
[2017-03-25] MEDS: CARDIZEM LA PO SCH (09:24)
[2017-03-25] MEDS: COZAAR PO SCH (09:25)
[2017-03-25] MEDS: COREG PO SCH (09:25)
[2017-03-25] MEDS: MIRALAX PO SCH (09:27)
[2017-03-25] MEDS: PRECARE PO SCH (09:27)
[2017-03-25] MEDS: PRISTIQ ER PO SCH (09:27)
[2017-03-25] MEDS: LANTUS SUBQ SCH (09:28)
[2017-03-25] MEDS: XARELTO PO SCH (09:28)
[2017-03-25] MEDS: PLETAL PO SCH (09:28)
[2017-03-25] MEDS: XANAX PO SCH (09:28)
[2017-03-25] MEDS: NEURONTIN PO SCH ×2 (09:28→14:15)
[2017-03-25] MEDS: LANOXIN PO SCH (09:30)
[2017-03-25 11:15] VITALS: BP 102/59
--- NOTE | 2017-03-25 14:32 | DISCHARGE SUMMARY ---
ADMISSION DATE: 03/20/2017 DISCHARGE DATE: 03/25/2017 HISTORY OF PRESENT ILLNESS: This is an 82-year-old who was admitted on 03/20/2017. Presented with shortness of breath, and she is well known to our service, most recently discharged on 02/09/2017. She carried a diagnosis of pulmonary hypertension, congestive heart failure diastolic type. Currently resides at [facility]. Came in apparently short of breath. Could not give any type of history secondary to cognitive function and being on BiPAP. Daughter who was at the bedside states that she notified in the morning that she looked sick and went here for evaluations. Apparently she got up to the ER and she was in respiratory distress with low O2 saturations. Chest x-ray revealed pulmonary edema. ABGs revealed hypercapnic hypoxic respiratory failure. She is being given Lasix and BiPAP. However she is a DNR level 1. Does have a mildly elevated white blood cell count and urinary tract infection was suspected on admission. PAST MEDICAL HISTORY: Reviewed again: 1. Diastolic heart failure. 2. Pulmonary hypertension. Most recent echo PA systolic pressure was 80. 3. Diabetes mellitus. 4. Hypertension. 5. Dementia. 6. Arthritis. 7. Chronic atrial fibrillation. 8. Macular degeneration with blindness in the right eye. 9. Anxiety and depression. SURGICAL HISTORY: She has had right knee surgery, hysterectomy, cholecystectomy, cataract surgery. HOSPITAL COURSE: She lives at [facility]. Admitted with hypercapnic hypoxic respiratory failure secondary to diastolic heart failure. Was given IV diuresis in the ER and continued to diurese. Her cardiology was followed. They continued her beta blockers and Cardiology did not find any evidence of new ischemia and felt she was stable from cardiac standpoint and we had diuresed a little bit. Her breathing had improved. Urinary tract infection, well treated. She was on meropenem. Her microbiology showed E coli and E coli was sensitive to cefazolin and trimethoprim. Blood cultures x2 were negative. She was treated with meropenem and she received really 5 days of meropenem so we will stop those. We did some physical therapy. I decreased her Xanax. She was a little bit lethargic. [place] she was ready go back to [facility] on 03/25/2017. HER DISCHARGE MEDICATIONS: Are as follows: She can get her DuoNebs p.r.n. I decreased her Xanax to 0.25 mg b.i.d., and I think we ought to decrease that further to 0.25 just at bedtime. Lipitor 10 mg at bedtime. Coreg 25 mg b.i.d. Pletal 50 mg p.o. b.i.d., Pristiq ER 100 mg daily. Lanoxin 125 mcg daily. Cardizem long-acting 180 mg daily. Colace 200 mg at bedtime. Lasix 40 mg p.o. every morning and q.1:00 p.m. Neurontin 300 mg p.o. 3 times daily. I am going to cut the Constable down as well to 2.5 q.12 hours p.r.n. Lantus 60 mg subcutaneously b.i.d. she was receiving, we will stop that. Synthroid 25 mcg p.o. daily. Cozaar 100 mg daily. Melatonin 3 mg at bedtime. Zyprexa 10 mg at bedtime. MiraLAX 17 g daily. Xarelto 20 mg daily. Review of any other comorbidities: I do not see anything else to add. cc: Babak Renner MD
== END 2017-03-25 16:50 ==
LOC: ED 09:04 → SUATTDRO 11:11 → 4N 11:11
PROVIDERS: ATTEND Emergency Medicine